=== PATIENT | female | born 1965 | race Caucasian/White ===

== ENCOUNTER 2020-01-18 17:01 | Inpatient (IN) | payer BC ==
[~2020-01-18] VITALS: Ht 170.2 cm; Wt 89.1 kg
[2020-01-18] MEDS ORDERED: OMEP40CA45 PO (17:55)
[2020-01-18] MEDS ORDERED: CITA20TA9 PO (17:55)
[2020-01-18 17:58] VITALS: BP 129/80
[2020-01-18 18:33] LABS: BASO % 0 % (0-3); EOS # 0.1 x10^3/uL (0.0-0.7); EOS % 2 % (0-3); HEMATOCRIT 41.9 % (36.0-47.0); LYMPH # 2.4 x10^3/uL (1.0-4.8); LYMPH % 43 % (24-48); MEAN CORPUSCULAR HEMOGLOBIN 29 pg (25-35); MEAN CORPUSCULAR HGB CONC 33 g/dL (31-37); MEAN CORPUSCULAR VOLUME 88 fL (79-100); MONO # 0.4 x10^3/uL (0.0-1.1); MONO % 7 % (0-9); NEUT # 2.6 x10^3/uL (1.8-7.7); NEUT % 48 % (31-73); PLATELET COUNT 170 x10^3/uL (140-400); RED BLOOD COUNT 4.76 x10^6/uL (3.50-5.40); RED CELL DISTRIBUTION WIDTH 13.5 % (11.5-14.5); WHITE BLOOD COUNT 5.5 x10^3/uL (4.0-11.0)
[2020-01-18 18:46] LABS: ALBUMIN 3.9 g/dL (3.4-5.0); ALBUMIN/GLOBULIN RATIO 1.4 (1.0-1.7); CREATININE 0.7 mg/dL (0.6-1.0); DIRECT BILIRUBIN 0.2 mg/dL (0.0-0.2); GFR 86.6; POTASSIUM 4.1 mmol/L (3.5-5.1); TOTAL BILIRUBIN 0.7 mg/dL (0.2-1.0); TOTAL PROTEIN 6.7 g/dL (6.4-8.2)
[2020-01-18 19:00] VITALS: BP 114/71
[2020-01-18] MEDS: IV NORMAL SALINE 1000ML BAG 1,000 ML IV SCH (19:58)
[2020-01-18] MEDS ORDERED: HYDROcodone/APAP 5/325MG 1 TAB TABLET PO PRN ×2 (20:00)
[2020-01-18] MEDS ORDERED: ONDANSETRON PF 4 MG/2 ML VIAL. IVP PRN (20:00)
[2020-01-18 21:15] LABS: PROTHROMBIN TIME PATIENT 12.3 SEC (11.7-14.0)
--- NOTE | 2020-01-18 22:53 | HP ---
ADMIT DATE: 01/18/2020 CHIEF COMPLAINT: Abdominal pain. HISTORY OF PRESENT ILLNESS: The patient is a pleasant, relatively healthy 54-year-old female, other than she has had a cholecystectomy. She presented to her doctor complaining of abdominal pain. Imaging was done, which confirmed a common bile duct stone. Dr. High called me and explained that patient needs to be admitted direct admit. I have accepted her as a direct admit. PAST MEDICAL HISTORY: Cholecystectomy. ALLERGIES: None. FAMILY HISTORY: Hypertension. SOCIAL HISTORY: She works at a doctor's office, doing some billing. She does not drink, smoke or take drugs. MEDICATIONS: Reviewed, please refer to the MRAD. REVIEW OF SYSTEMS: GENERAL: No history of weight change, weakness or fevers. SKIN: No bruising, hair changes or rashes. EYES: No blurred, double or loss of vision. NOSE AND THROAT: No history of nosebleeds, hoarseness or sore throat. HEART: No history of palpitations, chest pain or shortness of breath on exertion. LUNGS: Denies cough, hemoptysis, wheezing or shortness of breath. GASTROINTESTINAL: Denies changes in appetite, nausea, vomiting, diarrhea or constipation. She complains of abdominal pain. GENITOURINARY: No history of frequency, urgency, hesitancy or nocturia. NEUROLOGIC: Denies history of numbness, tingling, tremor or weakness. PSYCHIATRIC: No history of panic, anxiety or depression. ENDOCRINE: No history of heat or cold intolerance, polyuria or polydipsia. EXTREMITIES: Denies muscle weakness, joint pain, pain on walking or stiffness. PHYSICAL EXAMINATION: VITALS: Within normal limits and are stable. GENERAL: No apparent distress. Alert and oriented. HEENT: Normal cephalic atraumatic, external auditory canals are patent. EYES: Extraocular muscles are intact, pupils are equally round and reactive to light and accommodation. MUSCULOSKELETAL: Well developed, well nourished, good range of motion. ENDOCRINE: No thyromegaly was palpated. LYMPHATICS: No cervical chain or axillary nodes were noted. HEMATOPOIETIC: No bruising. NECK: Supple, no JVD, no thyromegaly was noted. LUNGS: Clear to auscultation in all lung de dios without rhonchi or wheezing. HEART: RRR, S1, S2 present. Peripheral pulses intact, no obvious murmurs were noted. ABDOMEN: Soft, nontender, no organomegaly, normal bowel sounds. EXTREMITIES: Without any cyanosis, clubbing, or edema. Pedal pulses intact, Homans sign is negative. NEUROLOGIC: Normal speech, normal tone. A and O x 3, moves all extremities, no obvious focal deficits. PSYCHIATRIC: Normal affect, normal mood. Stable. SKIN: No ulcerations or rashes, good skin turgor, no jaundice. VASCULAR: Good capillary refill, neurovascular bundle appears to be intact. ASSESSMENT AND PLAN: Common bile duct stone. The patient will be admitted. We will consult GI. IV fluids, home meds, deep venous thrombosis prophylaxis, full code, p.r.nShavnone Rasmussen p.r.nShavonne Minor. JOSY FRANCISCO DO DR: JADEN/lucia JOB#: [id number] / [id number]
[2020-01-18 23:00] VITALS: BP 110/70
[2020-01-19 03:23] VITALS: BP 102/48
[2020-01-19 06:35] LABS: ALBUMIN 3.4 g/dL (3.4-5.0); ALBUMIN/GLOBULIN RATIO 1.3 (1.0-1.7); CALCIUM 8.5 mg/dL (8.5-10.1); CREATININE 0.6 mg/dL (0.6-1.0); GFR 103.4; TOTAL BILIRUBIN 0.3 mg/dL (0.2-1.0)
[2020-01-19 07:57] VITALS: BP 111/68
[2020-01-19] MEDS ORDERED: IV RINGERS,LACTATED 1000ML 1,000 ML IV SCH (08:41)
[2020-01-19] MEDS ORDERED: HYDROmorphone 2 MG/ML VIAL IV PRN (08:45)
[2020-01-19] MEDS ORDERED: MORPHINE SULFATE 2 MG/ML VIAL. IV PRN (08:45)
[2020-01-19] MEDS ORDERED: PROCHLORPERAZINE 10 MG/2 ML VIAL. IV PRN (08:45)
[2020-01-19] MEDS ORDERED: fentaNYL PF VIAL 100 MCG/2 ML VIAL IV PRN ×2 (08:45)
[2020-01-19] MEDS ORDERED: LIDOCAINE 1% PF 2 ML VIAL. ID PRN (08:45)
[2020-01-19] MEDS: IV NORMAL SALINE 1000ML BAG 1,000 ML IV SCH (08:54)
--- NOTE | 2020-01-19 09:56 | PDOC2 ---
GI CONSULT Reason For Consult: common bile duct stones HPI: HPI: 54 y/o female directly admitted last evening. Dr. Acuna previously discussed w/ Dr. High. She was seen by PCP for epigastric pain and n/v. Started on omeprazole and given GI cocktail which helped pain but not nausea. Noted w/ elevated liver enzymes (bili 1.4, AST 600, ALT 500 w/ normal WBC), and then noted w/ choledocholithiasis on outside imaging ([facility] S/p cholecystectomy for stones 21 years ago. Has had several episodes of severe epigastric pain over time that awakens her during the night, feels sweaty. Additionally lately has had some bloating and early satiety. Denies reflux/heartburn, dysphagia, chronic n/v, hematemesis, diarrhea, constipation, hematochezia, melena, or weight loss. EGD w/ Dr. Matilda Magallanes in 2010 w/ reflux and hiatal hernia. Normal colonoscopy in 2014. No liver or pancreas history. Remote h/o "ulcer" treated w/ medication. No NS AIDs. Works in [employer] but laid off during pandemic. Wants to make sure it's okay with her insurance to have ERCP. PMH: PMH: anxiety/depression, GERD cholecystectomy FH: Family History: Cancer (prostate, breast, bladder) Social History: Smoke: No ALCOHOL: social Drugs: None ROS: GEN: Denies fevers, chills, sweats HEENT: Denies blurred vision, sore throat CV: Denies chest pain RESP: Denies shortness of air, cough GI: Per HPI : Denies hematuria, dysuria ENDO: Denies weight changes NEURO: Denies confusion, dizziness MSK: Denies weakness, joint pain/swelling SKIN: Denies jaundice, pruritus Vitals: Vitals: Vital Signs Date Time Temp Pulse Resp B/P (MAP) Pulse Ox O2 Delivery O2 Flow Rate FiO2 01/19/20 08:00 Room Air 01/19/20 07:57 98.0 60 18 111/68 (82) 96 98.0 Labs: Labs: Laboratory Tests Test 01/18/20 18:20 01/18/20 20:56 01/19/20 04:43 White Blood Count 5.5 x10^3/uL (4.0-11.0) Red Blood Count 4.76 x10^6/uL (3.50-5.40) Hemoglobin 14.0 g/dL (12.0-15.5) Hematocrit 41.9 % (36.0-47.0) Mean Corpuscular Volume 88 fL (79-100) Mean Corpuscular Hemoglobin 29 pg (25-35) Mean Corpuscular Hemoglobin Concent 33 g/dL (31-37) Red Cell Distribution Width 13.5 % (11.5-14.5) Platelet Count 170 x10^3/uL (140-400) Neutrophils (%) (Auto) 48 % (31-73) Lymphocytes (%) (Auto) 43 % (24-48) Monocytes (%) (Auto) 7 % (0-9) Eosinophils (%) (Auto) 2 % (0-3) Basophils (%) (Auto) 0 % (0-3) Neutrophils # (Auto) 2.6 x10^3/uL (1.8-7.7) Lymphocytes # (Auto) 2.4 x10^3/uL (1.0-4.8) Monocytes # (Auto) 0.4 x10^3/uL (0.0-1.1) Eosinophils # (Auto) 0.1 x10^3/uL (0.0-0.7) Basophils # (Auto) 0.0 x10^3/uL (0.0-0.2) Sodium Level 141 mmol/L (136-145) 143 mmol/L (136-145) Potassium Level 4.1 mmol/L (3.5-5.1) 4.0 mmol/L (3.5-5.1) Chloride Level 104 mmol/L (98-107) 107 mmol/L (98-107) Carbon Dioxide Level 28 mmol/L (21-32) 27 mmol/L (21-32) Anion Gap 9 (6-14) 9 (6-14) Blood Urea Nitrogen 10 mg/dL (7-20) 12 mg/dL (7-20) Creatinine 0.7 mg/dL (0.6-1.0) 0.6 mg/dL (0.6-1.0) Estimated GFR (Cockcroft-Gault) 86.6 103.4 BUN/Creatinine Ratio 14 (6-20) 20 (6-20) Glucose Level 99 mg/dL (70-99) 92 mg/dL (70-99) Calcium Level 9.0 mg/dL (8.5-10.1) 8.5 mg/dL (8.5-10.1) Total Bilirubin 0.7 mg/dL (0.2-1.0) 0.3 mg/dL (0.2-1.0) Direct Bilirubin 0.2 mg/dL (0.0-0.2) Aspartate Amino Transf (AST/SGOT) 189 U/L (15-37) 106 U/L (15-37) Alanine Aminotransferase (ALT/SGPT) 455 U/L (14-59) 343 U/L (14-59) Alkaline Phosphatase 195 U/L (46-116) 155 U/L (46-116) Total Protein 6.7 g/dL (6.4-8.2) 6.0 g/dL (6.4-8.2) Albumin 3.9 g/dL (3.4-5.0) 3.4 g/dL (3.4-5.0) Albumin/Globulin Ratio 1.4 (1.0-1.7) 1.3 (1.0-1.7) Prothrombin Time 12.3 SEC (11.7-14.0) Prothromb Time International Ratio 1.0 (0.8-1.1) Allergies: Coded Allergies: No Known Drug Allergies (Unverified , 01/18/20) Medications: Current Medications Medications (Trade) Dose Ordered Sig/Denae Route PRN Reason Start Time Stop Time Status Last Admin Dose Admin Sodium Chloride 1,000 ml @ 75 mls/hr [id number] IV 01/18/20 18:00 01/19/20 08:54 Imaging: Imaging: - PE: GEN: NAD HEENT: Atraumatic, PERRL LUNGS: CTAB HEART: RRR ABD: NABS, S/ND/NT EXTREMITY: No edema SKIN: No rashes, no jaundice NEURO/PSYCH: A & O 3 A/P: A/P: Epigastric pain, n/v Abnormal LFTs - better Choledocholithiasis - at [facility] Bloating, early satiety, h/o reflux on past EGD - restarted on PPI this week CRC screen - UTD S/p cholecystectomy -- Discussed ERCP later today w/ Dr. Acuna - she is agreeable - all questions answered to her satisfaction. MATTHEW SANCHEZ Jan 19, 2020 09:56
--- NOTE | 2020-01-19 11:29 | PDOC ---
[employer] PROGRESS NOTE Chief Complaint Chief Complaint Common bile duct stones History of cholecystectomy History of Present Illness History of Present Illness 01-19-2020 Patient seen and examined She still has some abdominal pain She is scheduled for an ERCP later today Discussed with RN Chart reviewed Vitals/I&O Vitals/I&O: Vital Signs Date Time Temp Pulse Resp B/P (MAP) Pulse Ox O2 Delivery O2 Flow Rate FiO2 01/19/20 08:00 Room Air 01/19/20 07:57 98.0 60 18 111/68 (82) 96 98.0 I & O 01/18/20 01/18/20 01/19/20 15:00 23:00 07:00 Intake Total 740 ml Balance 740 ml Physical Exam General: Alert, Oriented X3, Cooperative Heart: Regular rate, Normal S1, Normal S2 Lungs: Clear Abdomen: Other (A little tender) Extremities: No clubbing, No cyanosis Skin: No rashes, No breakdown Labs Labs: Laboratory Tests Test 01/18/20 18:20 01/18/20 20:56 01/19/20 04:43 White Blood Count 5.5 x10^3/uL (4.0-11.0) Red Blood Count 4.76 x10^6/uL (3.50-5.40) Hemoglobin 14.0 g/dL (12.0-15.5) Hematocrit 41.9 % (36.0-47.0) Mean Corpuscular Volume 88 fL (79-100) Mean Corpuscular Hemoglobin 29 pg (25-35) Mean Corpuscular Hemoglobin Concent 33 g/dL (31-37) Red Cell Distribution Width 13.5 % (11.5-14.5) Platelet Count 170 x10^3/uL (140-400) Neutrophils (%) (Auto) 48 % (31-73) Lymphocytes (%) (Auto) 43 % (24-48) Monocytes (%) (Auto) 7 % (0-9) Eosinophils (%) (Auto) 2 % (0-3) Basophils (%) (Auto) 0 % (0-3) Neutrophils # (Auto) 2.6 x10^3/uL (1.8-7.7) Lymphocytes # (Auto) 2.4 x10^3/uL (1.0-4.8) Monocytes # (Auto) 0.4 x10^3/uL (0.0-1.1) Eosinophils # (Auto) 0.1 x10^3/uL (0.0-0.7) Basophils # (Auto) 0.0 x10^3/uL (0.0-0.2) Sodium Level 141 mmol/L (136-145) 143 mmol/L (136-145) Potassium Level 4.1 mmol/L (3.5-5.1) 4.0 mmol/L (3.5-5.1) Chloride Level 104 mmol/L (98-107) 107 mmol/L (98-107) Carbon Dioxide Level 28 mmol/L (21-32) 27 mmol/L (21-32) Anion Gap 9 (6-14) 9 (6-14) Blood Urea Nitrogen 10 mg/dL (7-20) 12 mg/dL (7-20) Creatinine 0.7 mg/dL (0.6-1.0) 0.6 mg/dL (0.6-1.0) Estimated GFR (Cockcroft-Gault) 86.6 103.4 BUN/Creatinine Ratio 14 (6-20) 20 (6-20) Glucose Level 99 mg/dL (70-99) 92 mg/dL (70-99) Calcium Level 9.0 mg/dL (8.5-10.1) 8.5 mg/dL (8.5-10.1) Total Bilirubin 0.7 mg/dL (0.2-1.0) 0.3 mg/dL (0.2-1.0) Direct Bilirubin 0.2 mg/dL (0.0-0.2) Aspartate Amino Transf (AST/SGOT) 189 U/L (15-37) 106 U/L (15-37) Alanine Aminotransferase (ALT/SGPT) 455 U/L (14-59) 343 U/L (14-59) Alkaline Phosphatase 195 U/L (46-116) 155 U/L (46-116) Total Protein 6.7 g/dL (6.4-8.2) 6.0 g/dL (6.4-8.2) Albumin 3.9 g/dL (3.4-5.0) 3.4 g/dL (3.4-5.0) Albumin/Globulin Ratio 1.4 (1.0-1.7) 1.3 (1.0-1.7) Prothrombin Time 12.3 SEC (11.7-14.0) Prothromb Time International Ratio 1.0 (0.8-1.1) Assessment and Plan Assessmemt and Plan Common bile duct stones History cholecystectomy Transaminase-itis Plan Probable ERCP later today Post ERCP we will watch for a day or 2 and then hope to discharge Home meds PRN pain meds IV fluids DVT prophylaxis Full code Appreciate subspecialist input Comment Review of Relevant I have reviewed the following items sven (where applicable) has been applied. Medications: Current Medications Medications (Trade) Dose Ordered Sig/Denae Route PRN Reason Start Time Stop Time Status Last Admin Dose Admin Sodium Chloride 1,000 ml @ 75 mls/hr [id number] IV 01/18/20 18:00 01/19/20 08:54 JOSY FRANCISCO III DO Jan 19, 2020 11:29
[2020-01-19 11:46] VITALS: BP 109/67
[2020-01-19] MEDS ORDERED: IOHEXOL 300 MG/ML 100ML VIAL. ONE (12:38)
[2020-01-19] MEDS ORDERED: ONDANSETRON PF 4 MG/2 ML VIAL. ONE (13:10)
--- NOTE | 2020-01-19 13:27 | PDOC4 ---
PROCEDURE Procedure ERC/ES/balloon stone extractions Indication: Abnormal LFT's/abd pain/abnormal ultrasound (stones) Meds: GETA Findings: E, G, D: cursory exam normal. Papilla normal CBD--filled to intrahepatic radicles. S/p hiren. No definite stones seen. No PD attempt. ES done, ~8mm. Spontaneous passage of few 2-3mm stones and some gravel. Balloon sweep x 2 w/o further fragments. Occlusion cholangiogram at end w/o filling defects. Reza. well. IMP: Choledocholithiasis, resolved. S/p hiren. REC: clears today. No ASA, NSAID, AC's for 2 weeks. If no problems, advance diet in AM and consider for discharge. GABY SANCHEZ MD Jan 19, 2020 13:27
--- NOTE | 2020-01-19 14:59 | RAD ---
ERCP for choledocholithiasis. Findings and impression: 3 fluoroscopic spot views of an ERCP are provided demonstrating sphincterotomy with near complete washout of biliary contrast. There has been a prior cholecystectomy. Fluoroscopy time: 180.8 seconds. Electronically signed by: Bertrand Pruitt MD (01/19/2020 2:56 PM) [id number]
[2020-01-19 15:00] VITALS: BP 111/74
[2020-01-19 19:41] VITALS: BP 121/65
[2020-01-19 23:07] VITALS: BP 118/74
[2020-01-20] MEDS: IV NORMAL SALINE 1000ML BAG 1,000 ML IV SCH ×2 (00:12→10:00)
[2020-01-20 07:00] VITALS: BP 110/67
[2020-01-20] MEDS ORDERED: PANTOPRAZOLE 40 MG TABLET.DR. PO SCH (07:30)
[2020-01-20 10:40] VITALS: BP 120/77
[2020-01-20 12:16] LABS: CALCIUM 9.1 mg/dL (8.5-10.1); CREATININE 0.7 mg/dL (0.6-1.0); GFR 86.6; POTASSIUM 4.2 mmol/L (3.5-5.1)
[2020-01-20 12:22] LABS: ALBUMIN 3.9 g/dL (3.4-5.0); ALBUMIN/GLOBULIN RATIO 1.3 (1.0-1.7); TOTAL BILIRUBIN 0.6 mg/dL (0.2-1.0); TOTAL PROTEIN 6.8 g/dL (6.4-8.2)
--- NOTE | 2020-01-20 12:37 | PDOC3 ---
Discharge Summary Visit Information Date of Admission: Jan 18, 2020 Date of Discharge: Jan 20, 2020 Final Diagnosis choledocholithiasis s/p ercp transaminitis Brief Hospital Course Allergies Allergies Coded Allergies Type Severity Reaction Last Updated Verified No Known Drug Allergies 01/19/20 No Vital Signs GENERAL: No apparent distress. Alert and oriented. HEENT: Head normocephalic, atraumatic. NECK: Supple LUNGS: Clear to auscultation. HEART: RRR, S1, S2 present, pulses intact ABDOMEN: Soft, positive bowel sounds. EXTREMITIES: No cyanosis or edema. NEUROLOGIC: Normal speech, normal tone PSYCHIATRIC: Normal affect, normal mood. SKIN: No ulceration. Vital Signs Date Time Temp Pulse Resp B/P (MAP) Pulse Ox O2 Delivery O2 Flow Rate FiO2 01/20/20 10:40 98.8 71 18 120/77 (91) 99 Room Air 98.8 01/19/20 14:03 4 Lab Results Laboratory Tests Test 01/18/20 18:20 01/18/20 20:56 01/19/20 04:43 01/20/20 11:10 White Blood Count 5.5 x10^3/uL (4.0-11.0) Red Blood Count 4.76 x10^6/uL (3.50-5.40) Hemoglobin 14.0 g/dL (12.0-15.5) Hematocrit 41.9 % (36.0-47.0) Mean Corpuscular Volume 88 fL (79-100) Mean Corpuscular Hemoglobin 29 pg (25-35) Mean Corpuscular Hemoglobin Concent 33 g/dL (31-37) Red Cell Distribution Width 13.5 % (11.5-14.5) Platelet Count 170 x10^3/uL (140-400) Neutrophils (%) (Auto) 48 % (31-73) Lymphocytes (%) (Auto) 43 % (24-48) Monocytes (%) (Auto) 7 % (0-9) Eosinophils (%) (Auto) 2 % (0-3) Basophils (%) (Auto) 0 % (0-3) Neutrophils # (Auto) 2.6 x10^3/uL (1.8-7.7) Lymphocytes # (Auto) 2.4 x10^3/uL (1.0-4.8) Monocytes # (Auto) 0.4 x10^3/uL (0.0-1.1) Eosinophils # (Auto) 0.1 x10^3/uL (0.0-0.7) Basophils # (Auto) 0.0 x10^3/uL (0.0-0.2) Sodium Level 141 mmol/L (136-145) 143 mmol/L (136-145) 146 mmol/L (136-145) Potassium Level 4.1 mmol/L (3.5-5.1) 4.0 mmol/L (3.5-5.1) 4.2 mmol/L (3.5-5.1) Chloride Level 104 mmol/L (98-107) 107 mmol/L (98-107) 106 mmol/L (98-107) Carbon Dioxide Level 28 mmol/L (21-32) 27 mmol/L (21-32) 30 mmol/L (21-32) Anion Gap 9 (6-14) 9 (6-14) 10 (6-14) Blood Urea Nitrogen 10 mg/dL (7-20) 12 mg/dL (7-20) 7 mg/dL (7-20) Creatinine 0.7 mg/dL (0.6-1.0) 0.6 mg/dL (0.6-1.0) 0.7 mg/dL (0.6-1.0) Estimated GFR (Cockcroft-Gault) 86.6 103.4 86.6 BUN/Creatinine Ratio 14 (6-20) 20 (6-20) 10 (6-20) Glucose Level 99 mg/dL (70-99) 92 mg/dL (70-99) 97 mg/dL (70-99) Calcium Level 9.0 mg/dL (8.5-10.1) 8.5 mg/dL (8.5-10.1) 9.1 mg/dL (8.5-10.1) Total Bilirubin 0.7 mg/dL (0.2-1.0) 0.3 mg/dL (0.2-1.0) 0.6 mg/dL (0.2-1.0) Direct Bilirubin 0.2 mg/dL (0.0-0.2) Aspartate Amino Transf (AST/SGOT) 189 U/L (15-37) 106 U/L (15-37) 137 U/L (15-37) Alanine Aminotransferase (ALT/SGPT) 455 U/L (14-59) 343 U/L (14-59) 395 U/L (14-59) Alkaline Phosphatase 195 U/L (46-116) 155 U/L (46-116) 249 U/L (46-116) Total Protein 6.7 g/dL (6.4-8.2) 6.0 g/dL (6.4-8.2) 6.8 g/dL (6.4-8.2) Albumin 3.9 g/dL (3.4-5.0) 3.4 g/dL (3.4-5.0) 3.9 g/dL (3.4-5.0) Albumin/Globulin Ratio 1.4 (1.0-1.7) 1.3 (1.0-1.7) 1.3 (1.0-1.7) Prothrombin Time 12.3 SEC (11.7-14.0) Prothromb Time International Ratio 1.0 (0.8-1.1) Lipase 175 U/L (73-393) Laboratory Tests Test 01/20/20 11:10 Sodium Level 146 mmol/L (136-145) Potassium Level 4.2 mmol/L (3.5-5.1) Chloride Level 106 mmol/L (98-107) Carbon Dioxide Level 30 mmol/L (21-32) Anion Gap 10 (6-14) Blood Urea Nitrogen 7 mg/dL (7-20) Creatinine 0.7 mg/dL (0.6-1.0) Estimated GFR (Cockcroft-Gault) 86.6 BUN/Creatinine Ratio 10 (6-20) Glucose Level 97 mg/dL (70-99) Calcium Level 9.1 mg/dL (8.5-10.1) Total Bilirubin 0.6 mg/dL (0.2-1.0) Aspartate Amino Transf (AST/SGOT) 137 U/L (15-37) Alanine Aminotransferase (ALT/SGPT) 395 U/L (14-59) Alkaline Phosphatase 249 U/L (46-116) Total Protein 6.8 g/dL (6.4-8.2) Albumin 3.9 g/dL (3.4-5.0) Albumin/Globulin Ratio 1.3 (1.0-1.7) Lipase 175 U/L (73-393) Brief Hospital Course 54 y/o female who initally went to her PCP for epigastric pain, started on PPI and carafate to help with pain and nausea. no improvement. had labs and imaging done with showed elevated LFTs AST of 600 and ALT of 500. bili of 1.4 and normal WBC. outside imaging consistent with choledocholithiasis. patient reports gallbladder removeal 21 years ago. reports intermittent epigastric pain that awakens her at night with increased bloating recently. noted EGD 2010 w/ reflux and hiatal hernia and Normal colonoscopy in 2015. denies nsaid use. patient admitted for Choledocholithiasis. underwent ECRP performed by Dr. Acuna Findings showing normal EGD. CBD--filled to intrahepatic radicles. S/p hiren. No definite stones seen. ES done, ~8mm. Spontaneous passage of few 2-3mm stones and some gravel. Balloon sweep x 2 w/o further fragments. she tolerated procedure well. repeat labs so persistently elevated LFTs. lipase checked and normal. should not take NSAIDs for 2 weeks. avoid tylenol given elvated LFTs. if she is able to tolerate advance diet she will be discharged today. recommend repeat LFTs as outpatient. she will continue her home meds as previously prescribed. Discharge Information Condition at Discharge: Stable Disposition/Orders: D/C to Home Scheduled Citalopram Hydrobromide (Celexa) 20 Mg Tablet, 1 TAB PO DAILY for ANXIETY, #90 Ref 3 (Reported) Entered as Reported by: TANYA ZHOU on 01/18/201754 Last Action: Continued on 01/20/201227 by HUGO DELGADO MD Omeprazole (Omeprazole) 40 Mg Capsule., 1 CAP PO DAILY for GERD, #30 Ref 3 (Reported) Entered as Reported by: TANYA ZHOU on 01/18/201754 Last Action: Converted on 01/20/201227 by MD SANDY GRADY MANEESH MD Jan 20, 2020 12:37
--- NOTE | 2020-01-20 12:38 | PDOC ---
PROGRESS NOTES Chief Complaint Chief Complaint Common bile duct stones s/p ERCP History of cholecystectomy transaminitis. plan repeat lfts remain elevated lipase normal advance diet as tolerated continue PPI therapy if able to tolerate diet can be discharged later today avoid nsaids for 2 weeks. avoid tylenol till repeat lfts as outpatient. History of Present Illness History of Present Illness feels well today. wants to be discharged today. Vitals Vitals Vital Signs Date Time Temp Pulse Resp B/P (MAP) Pulse Ox O2 Delivery O2 Flow Rate FiO2 01/20/20 10:40 98.8 71 18 120/77 (91) 99 Room Air 98.8 01/19/20 14:03 4 Physical Exam General: Alert, Oriented X3, Cooperative Heart: Regular rate, Normal S1, Normal S2 Lungs: Clear Abdomen: Other (A little tender) Extremities: No clubbing, No cyanosis Skin: No rashes, No breakdown Labs LABS Laboratory Tests Test 01/20/20 11:10 Sodium Level 146 mmol/L (136-145) Potassium Level 4.2 mmol/L (3.5-5.1) Chloride Level 106 mmol/L (98-107) Carbon Dioxide Level 30 mmol/L (21-32) Anion Gap 10 (6-14) Blood Urea Nitrogen 7 mg/dL (7-20) Creatinine 0.7 mg/dL (0.6-1.0) Estimated GFR (Cockcroft-Gault) 86.6 BUN/Creatinine Ratio 10 (6-20) Glucose Level 97 mg/dL (70-99) Calcium Level 9.1 mg/dL (8.5-10.1) Total Bilirubin 0.6 mg/dL (0.2-1.0) Aspartate Amino Transf (AST/SGOT) 137 U/L (15-37) Alanine Aminotransferase (ALT/SGPT) 395 U/L (14-59) Alkaline Phosphatase 249 U/L (46-116) Total Protein 6.8 g/dL (6.4-8.2) Albumin 3.9 g/dL (3.4-5.0) Albumin/Globulin Ratio 1.3 (1.0-1.7) Lipase 175 U/L (73-393) Comment Review of Relevant I have reviewed the following items sven (where applicable) has been applied. Labs Laboratory Tests Test 01/18/20 18:20 4/23/20 20:56 01/19/20 04:43 01/20/20 11:10 White Blood Count 5.5 x10^3/uL (4.0-11.0) Red Blood Count 4.76 x10^6/uL (3.50-5.40) Hemoglobin 14.0 g/dL (12.0-15.5) Hematocrit 41.9 % (36.0-47.0) Mean Corpuscular Volume 88 fL (79-100) Mean Corpuscular Hemoglobin 29 pg (25-35) Mean Corpuscular Hemoglobin Concent 33 g/dL (31-37) Red Cell Distribution Width 13.5 % (11.5-14.5) Platelet Count 170 x10^3/uL (140-400) Neutrophils (%) (Auto) 48 % (31-73) Lymphocytes (%) (Auto) 43 % (24-48) Monocytes (%) (Auto) 7 % (0-9) Eosinophils (%) (Auto) 2 % (0-3) Basophils (%) (Auto) 0 % (0-3) Neutrophils # (Auto) 2.6 x10^3/uL (1.8-7.7) Lymphocytes # (Auto) 2.4 x10^3/uL (1.0-4.8) Monocytes # (Auto) 0.4 x10^3/uL (0.0-1.1) Eosinophils # (Auto) 0.1 x10^3/uL (0.0-0.7) Basophils # (Auto) 0.0 x10^3/uL (0.0-0.2) Sodium Level 141 mmol/L (136-145) 143 mmol/L (136-145) 146 mmol/L (136-145) Potassium Level 4.1 mmol/L (3.5-5.1) 4.0 mmol/L (3.5-5.1) 4.2 mmol/L (3.5-5.1) Chloride Level 104 mmol/L (98-107) 107 mmol/L (98-107) 106 mmol/L (98-107) Carbon Dioxide Level 28 mmol/L (21-32) 27 mmol/L (21-32) 30 mmol/L (21-32) Anion Gap 9 (6-14) 9 (6-14) 10 (6-14) Blood Urea Nitrogen 10 mg/dL (7-20) 12 mg/dL (7-20) 7 mg/dL (7-20) Creatinine 0.7 mg/dL (0.6-1.0) 0.6 mg/dL (0.6-1.0) 0.7 mg/dL (0.6-1.0) Estimated GFR (Cockcroft-Gault) 86.6 103.4 86.6 BUN/Creatinine Ratio 14 (6-20) 20 (6-20) 10 (6-20) Glucose Level 99 mg/dL (70-99) 92 mg/dL (70-99) 97 mg/dL (70-99) Calcium Level 9.0 mg/dL (8.5-10.1) 8.5 mg/dL (8.5-10.1) 9.1 mg/dL (8.5-10.1) Total Bilirubin 0.7 mg/dL (0.2-1.0) 0.3 mg/dL (0.2-1.0) 0.6 mg/dL (0.2-1.0) Direct Bilirubin 0.2 mg/dL (0.0-0.2) Aspartate Amino Transf (AST/SGOT) 189 U/L (15-37) 106 U/L (15-37) 137 U/L (15-37) Alanine Aminotransferase (ALT/SGPT) 455 U/L (14-59) 343 U/L (14-59) 395 U/L (14-59) Alkaline Phosphatase 195 U/L (46-116) 155 U/L (46-116) 249 U/L (46-116) Total Protein 6.7 g/dL (6.4-8.2) 6.0 g/dL (6.4-8.2) 6.8 g/dL (6.4-8.2) Albumin 3.9 g/dL (3.4-5.0) 3.4 g/dL (3.4-5.0) 3.9 g/dL (3.4-5.0) Albumin/Globulin Ratio 1.4 (1.0-1.7) 1.3 (1.0-1.7) 1.3 (1.0-1.7) Prothrombin Time 12.3 SEC (11.7-14.0) Prothromb Time International Ratio 1.0 (0.8-1.1) Lipase 175 U/L (73-393) Laboratory Tests Test 01/20/20 11:10 Sodium Level 146 mmol/L (136-145) Potassium Level 4.2 mmol/L (3.5-5.1) Chloride Level 106 mmol/L (98-107) Carbon Dioxide Level 30 mmol/L (21-32) Anion Gap 10 (6-14) Blood Urea Nitrogen 7 mg/dL (7-20) Creatinine 0.7 mg/dL (0.6-1.0) Estimated GFR (Cockcroft-Gault) 86.6 BUN/Creatinine Ratio 10 (6-20) Glucose Level 97 mg/dL (70-99) Calcium Level 9.1 mg/dL (8.5-10.1) Total Bilirubin 0.6 mg/dL (0.2-1.0) Aspartate Amino Transf (AST/SGOT) 137 U/L (15-37) Alanine Aminotransferase (ALT/SGPT) 395 U/L (14-59) Alkaline Phosphatase 249 U/L (46-116) Total Protein 6.8 g/dL (6.4-8.2) Albumin 3.9 g/dL (3.4-5.0) Albumin/Globulin Ratio 1.3 (1.0-1.7) Lipase 175 U/L (73-393) Medications Current Medications Sodium Chloride 1,000 ml @ 75 mls/hr [id number] IV Last administered on 01/20/20at 00:12; Start 01/18/20 at 18:00 Ondansetron HCl (Zofran) 4 mg PRN Q6HRS PRN IVP NAUSEA/VOMITING Last administered on 01/19/20at 14:42; Start 01/18/20 at 20:00 Acetaminophen/ Hydrocodone Bitart (Lortab 5/325) 1 tab PRN Q6HRS PRN PO MILD PAIN 1-3; Start 01/18/20 at 20:00 Acetaminophen/ Hydrocodone Bitart (Lortab 5/325) 2 tab PRN Q6HRS PRN PO MODERATE PAIN; Start 01/18/20 at 20:00 Fentanyl Citrate (Fentanyl 2ml Vial) 25 mcg PRN Q5MIN PRN IV MILD PAIN 1-3; Start 01/19/20 at 08:45; Stop 01/20/20 at 08:44; Status DC Fentanyl Citrate (Fentanyl 2ml Vial) 50 mcg PRN Q5MIN PRN IV MODERATE TO SEVERE PAIN; Start 01/19/20 at 08:45; Stop 01/20/20 at 08:44; Status DC Morphine Sulfate (Morphine Sulfate) 1 mg PRN Q10MIN PRN IV SEVERE PAIN 7-10; Start 01/19/20 at 08:45; Stop 01/20/20 at 08:44; Status DC Ringer's Solution 1,000 ml @ 30 mls/hr Q24H IV Last administered on 01/19/20at 08:41; Start 01/19/20 at 08:41; Stop 01/19/20 at 20:40; Status DC Lidocaine HCl (Xylocaine-Mpf 1% 2ml Vial) 2 ml PRN 1X PRN ID PRIOR TO IV START; Start 01/19/20 at 08:45; Stop 01/20/20 at 08:44; Status DC Hydromorphone HCl (Dilaudid) 0.5 mg PRN Q10MIN PRN IV SEV PAIN, Second choice; Start 01/19/20 at 08:45; Stop 01/20/20 at 08:44; Status DC Prochlorperazine Edisylate (Compazine) 5 mg PACU PRN PRN IV NAUSEA, MRX1; Start 01/19/20 at 08:45; Stop 01/20/20 at 08:44; Status DC Levofloxacin/ Dextrose 100 ml @ 100 mls/hr 1X ONCE IV Last administered on 01/19/20at 10:00; Start 01/19/20 at 10:00; Stop 01/19/20 at 10:59; Status DC Pantoprazole Sodium (Protonix) 40 mg DAILYAC PO Last administered on 01/20/20at 09:07; Start 01/20/20 at 07:30 Iohexol (Omnipaque 300 Mg/ml) 100 ml STK-MED ONCE .ROUTE ; Start 01/19/20 at 12:38; Stop 01/19/20 at 12:38; Status DC Ondansetron HCl (Zofran) 4 mg STK-MED ONCE .ROUTE ; Start 01/19/20 at 13:10; Stop 01/19/20 at 13:10; Status DC Active Scripts Active Reported Celexa (Citalopram Hydrobromide) 20 Mg Tablet 1 Tab PO DAILY Omeprazole 40 Mg Capsule.dr 1 Cap PO DAILY Vitals/I & O Vital Sign - Last 24 Hours 01/19/20 01/19/20 01/19/20 01/19/20 13:33 13:48 14:03 15:00 Temp 98.2 97.9 98.2 97.9 Pulse 61 63 62 65 Resp 18 18 18 18 B/P (MAP) 124/75 121/69 127/63 111/74 (86) Pulse Ox 99 96 96 98 O2 Delivery Room Air Room Air Room Air Room Air O2 Flow Rate 4 4 01/19/20 01/19/20 01/19/20 01/20/20 19:41 20:00 23:07 03:06 Temp 98.4 97.6 98.4 97.6 Pulse 67 64 Resp 18 18 B/P (MAP) 121/65 (83) 118/74 (89) Pulse Ox 95 97 O2 Delivery Room Air Room Air Room Air Room Air 01/20/20 01/20/20 07:00 10:40 Temp 99.3 98.8 99.3 98.8 Pulse 78 71 Resp 16 18 B/P (MAP) 110/67 (81) 120/77 (91) Pulse Ox 94 99 O2 Delivery Room Air Room Air Intake and Output 01/19/20 01/19/20 01/20/20 15:00 23:00 07:00 Intake Total 700 ml 540 ml 1635 ml Balance 700 ml 540 ml 1635 ml HUGO DELGADO MD Jan 20, 2020 12:38
[2020-01-20 15:00] VITALS: BP 125/72
--- NOTE | 2020-01-20 15:58 | PDOC ---
Subjective: Subjective: Tolerating diet. Wants top d/c Objective: Vital Signs: Vital Signs Date Time Temp Pulse Resp B/P (MAP) Pulse Ox O2 Delivery O2 Flow Rate FiO2 01/20/20 12:42 Room Air 4.0 01/20/20 10:40 98.8 71 18 120/77 (91) 99 98.8 Labs: Laboratory Tests Test 01/20/20 11:10 Sodium Level 146 mmol/L (136-145) Potassium Level 4.2 mmol/L (3.5-5.1) Chloride Level 106 mmol/L (98-107) Carbon Dioxide Level 30 mmol/L (21-32) Anion Gap 10 (6-14) Blood Urea Nitrogen 7 mg/dL (7-20) Creatinine 0.7 mg/dL (0.6-1.0) Estimated GFR (Cockcroft-Gault) 86.6 BUN/Creatinine Ratio 10 (6-20) Glucose Level 97 mg/dL (70-99) Calcium Level 9.1 mg/dL (8.5-10.1) Total Bilirubin 0.6 mg/dL (0.2-1.0) Aspartate Amino Transf (AST/SGOT) 137 U/L (15-37) Alanine Aminotransferase (ALT/SGPT) 395 U/L (14-59) Alkaline Phosphatase 249 U/L (46-116) Total Protein 6.8 g/dL (6.4-8.2) Albumin 3.9 g/dL (3.4-5.0) Albumin/Globulin Ratio 1.3 (1.0-1.7) Lipase 175 U/L (73-393) Physical Exam: Physical Exam: GEN: NAD HEENT: OP clear CV: S1S2 without murmurs, rubs, or gallops RESP: CTAB without wheezing, rhonchi, or crackles ABD: NABS, SNT/ND EXT: No edema NEURO: AAO x 3 Assessment & Plan: Assessment : 1) Choledocholithiasis- s/p ERCP 2)Elevated LFTs Plan: 1) She agrees to see her PCP Wednesday for repeat LFTs with slight bump after ERCP 2) Okay to d/c FABIAN ZENG MD Jan 20, 2020 15:58
[2020-01-21] MEDS ORDERED: CITALOPRAM 20 MG TABLET. PO SCH (09:00)
[2020-01-21] MEDS ORDERED: NON FORMULARY ITEM (Omeprazole 1 CAP) PO SCH (09:00)
== END 2020-01-20 16:30 | disposition home or self-care (01) | DRG 446 ==
LOC: 4 NORTH 17:01
PROVIDERS: ADMIT Internal Medicine; ATTEND Internal Medicine
PROC: 0F798ZZ Dilation of Common Bile Duct, Via Natural or Artificial Opening Endoscopic (ICD-10-PCS; principal; 2020-01-19 13:00)
DX: K80.50 Calculus of bile duct without cholangitis or cholecystitis without obstruction (principal); F32.9 Major depressive disorder, single episode, unspecified; F41.9 Anxiety disorder, unspecified; K21.9 Gastro-esophageal reflux disease without esophagitis; Z79.899 Other long term (current) drug therapy; Z90.49 Acquired absence of other specified parts of digestive tract; Z82.49 Family history of ischemic heart disease and other diseases of the circulatory system
CPT/HCPCS: 36415; 43262; 43264; 74328; 80053; 80076; 83690; 85025; 85610; J1956; J2405; J7030; J7120; Q9967; G0378